=== PATIENT | female | born 1980 | race Caucasian/White ===

== ENCOUNTER 2021-11-17 14:40 | Observation (INO) ==
[2021-11-17] MEDS ORDERED: Ondansetron 4 MG/2 ML VIAL IVP PRN (17:29)
[2021-11-17] MEDS ORDERED: *HR* OxyCODONE/APAP 5/325 TABLET PO PRN ×2 (17:29)
[2021-11-17] MEDS ORDERED: *HR* Metoprolol 5 MG/5 ML VIAL IVP PRN (17:29)
[2021-11-17] MEDS ORDERED: 0.9 % Sodium Chloride 1,000 ML IVC SCH (17:30)
[2021-11-17 18:05] LABS: Basophils # 0.1 K/mcL (0.0-0.2); Basophils % 0.5 %; Eosinophils # 0.3 K/mcL (0.0-0.6); Eosinophils % 3.5 %; Hematocrit 39.6 % (35.3-44.9); Hemoglobin 13.3 g/dL (11.5-15.4); Immature Granulocytes % 0.4 % (0-4); Lymphocytes % 20.7 %; Mean Corpuscular HGB Conc 33.6 g/dL (31.6-35.5); Mean Corpuscular Hemoglobin 28.9 pg (28.0-33.3); Mean Corpuscular Volume 85.9 fL (83.0-100.0); Mean Platelet Volume 10.6 fL (9.4-12.4); Monocytes # 0.5 K/mcL (0.0-1.3); Monocytes % 5.3 %; Neutrophils # 6.7 K/mcL (1.6-8.9); Platelet Count 264 K/mcL (140-400); Red Blood Count 4.61 M/mcL (3.82-4.97); Red Cell Distribution Width 12.9 % (11.5-14.5); Segmented Neutrophils % 69.6 %; White Blood Count 9.6 K/mcL (4.3-11.1)
[2021-11-17 18:19] LABS: BUN/Creatinine Ratio 14 (6-26); Blood Urea Nitrogen 13 mg/dL (6-20); Calcium 8.7 mg/dL (8.6-10.3); Carbon Dioxide 26 mEq/L (23-29); Chloride 104 mEq/L (98-107); Glucose 95 mg/dL (70-105); Osmolality,Calculated 280 (280-300); Potassium 3.7 mEq/L (3.5-5.1); Sodium 135 mEq/L (136-145); eGFR For African Americans > 60 (> 60); eGFR For Non-African Americans > 60 (> 60)
[2021-11-17] MEDS: Morphine Sulfate 2 MG/ML SYRINGE IVP PRN ×2 (18:49→22:00)
[2021-11-18] MEDS: Morphine Sulfate 2 MG/ML SYRINGE IVP PRN ×2 (05:27→09:31)
[2021-11-18] MEDS ORDERED: Ondansetron 4 MG/2 ML VIAL ONE (07:29)
[2021-11-18] MEDS ORDERED: *HR* FentaNYL (PF) 100 MCG/2 ML VIAL ONE (07:29)
[2021-11-18] MEDS ORDERED: *HR* Midazolam HCl 2 MG/2 ML VIAL ONE (07:29)
[2021-11-18] MEDS ORDERED: Lidocaine -MPF 2% 5 ML VIAL ONE (07:29)
[2021-11-18] MEDS ORDERED: *HR* Propofol 200 MG/20 ML VIAL IVP ONE (07:29)
[2021-11-18] MEDS ORDERED: CefOXitin 2,000 MG VIAL ONE (08:34)
[2021-11-18] MEDS ORDERED: Famotidine 20 MG/2 ML VIAL ONE (08:38)
[2021-11-18] MEDS ORDERED: Acetaminophen IV 1,000 MG/100 ML BAG IVPB ONE (08:42)
[2021-11-18] MEDS ORDERED: *HR* OxyCODONE Immed Rel 5 MG TABLET PO PRN (09:43)
[2021-11-18] MEDS ORDERED: *HR* HYDROmorphone 2 MG TABLET PO PRN (09:43)
[2021-11-18] MEDS ORDERED: Ondansetron 4 MG/2 ML VIAL IVP PRN ×2 (09:43→12:18)
[2021-11-18] MEDS ORDERED: Ketorolac 30 MG/ML VIAL IVP PRN (09:43)
[2021-11-18] MEDS: *HR* HYDROmorphone (PF) 1 MG/ML SYRINGE IVP PRN ×6 (09:50→11:39)
[2021-11-18] MEDS: *HR* Labetalol 20 MG/4 ML SYRINGE IVP PRN ×2 (10:11→10:24)
[2021-11-18] MEDS ORDERED: Pregabalin 75 MG CAPSULE ONE (11:02)
[2021-11-18] MEDS ORDERED: *HR* HYDROmorphone 2 MG/ML SYRINGE IVP PRN (11:02)
[2021-11-18] MEDS ORDERED: Morphine Sulfate 2 MG/ML SYRINGE IVP PRN (12:18)
[2021-11-18] MEDS ORDERED: *HR* OxyCODONE/APAP 5/325 TABLET PO PRN ×2 (12:18)
[2021-11-18] MEDS ORDERED: 0.9 % Sodium Chloride 1,000 ML IVC SCH (12:18)
[2021-11-18] MEDS ORDERED: *HR* Metoprolol 5 MG/5 ML VIAL IVP PRN (12:18)
[2021-11-18 13:07] VITALS: BP 144/87; PULSE 65; TEMP 97.4; O2SAT 95
== END 2021-11-18 13:21 | disposition home or self-care (01) ==
LOC: 3ANU
PROVIDERS: ADMIT Surgery; ATTEND Surgery